=== PATIENT | male | born 1965 ===

== ENCOUNTER 2021-12-20 06:54 | Day surgery (SDC) | payer OTHER ==
[~2021-12-20] VITALS: Ht 185.4 cm; Wt 128.4 kg
[~2021-12-20 06:54] MED LIST: ACID REDUCER20 M1 PO
== END 2021-12-20 14:45 | disposition home or self-care (01) ==
LOC: CIR.AMB 06:54 → EDSTATUS 09:30 → CIR.AMB 09:30 → SURH 09:30 → CIR.AMB 11:15
PROVIDERS: ATTEND Colon & Rectal Surgery
DX: D12.9 Benign neoplasm of anus and anal canal (principal); I10 Essential (primary) hypertension; Z87.891 Personal history of nicotine dependence; G47.33 Obstructive sleep apnea (adult) (pediatric); K57.30 Diverticulosis of large intestine without perforation or abscess without bleeding; E66.9 Obesity, unspecified; K64.1 Second degree hemorrhoids; E78.5 Hyperlipidemia, unspecified